=== PATIENT | female | born 1970 | race Caucasian/White ===

== ENCOUNTER 2022-02-10 18:41 | Emergency (ER) | payer OTHER ==
[2022-02-10 19:34] VITALS: BP 154/77; PULSE 78; TEMP 98; BMI 26.6
[2022-02-10] MEDS ORDERED: KETOROLAC TROMETHAMINE 30 MG/1 ML VIAL IM ONE (21:42)
[2022-02-10] MEDS ORDERED: DEXAMETHASONE SOD PHOSPHATE 10 MG/1 ML VIAL IM ONE (21:42)
[2022-02-10] MEDS ORDERED: DEXAMETHASONE SOD PHOSPHATE 10 MG/1 ML VIAL ONE (21:46)
[2022-02-10] MEDS ORDERED: KETOROLAC TROMETHAMINE 30 MG/1 ML VIAL ONE (21:46)
[2022-02-10 22:16] LABS: THROAT:GRP A STREP NOT DETECTED (NOTDETECTED)
== END 2022-02-10 23:02 | disposition home or self-care (01) ==
LOC: JERFT 18:41 → JER 18:41 → JERFT 23:02
PROC: 3E0233Z Introduction of Anti-inflammatory into Muscle, Percutaneous Approach (ICD-10-PCS; principal; 2022-02-10)
PROC: 3E0233Z Introduction of Anti-inflammatory into Muscle, Percutaneous Approach (ICD-10-PCS; 2022-02-10)
DX: J02.9 Acute pharyngitis, unspecified (principal)
CPT/HCPCS: 0241U-QW; 87651; 99284-25; J1100

== ENCOUNTER 2024-01-27 15:18 | Emergency (ER) | payer OTHER ==
[2024-01-27 15:23] VITALS: BP 137/66; PULSE 82; RESP 16; TEMP 97.9; BMI 35.2
[2024-01-27] MEDS ORDERED: KETOROLAC TROMETHAMINE 30 MG/1 ML VIAL ONE ×2 (17:43→17:48)
[2024-01-27] MEDS: KETOROLAC TROMETHAMINE 30 MG/1 ML VIAL IM ONE (17:55)
== END 2024-01-27 18:01 | disposition home or self-care (01) ==
LOC: JERFT 15:18
PROC: 3E0233Z Introduction of Anti-inflammatory into Muscle, Percutaneous Approach (ICD-10-PCS; principal; 2024-01-27)
DX: M72.2 Plantar fascial fibromatosis (principal); M79.671 Pain in right foot
CPT/HCPCS: 73630-TC-RT-FY; 99284-25